=== PATIENT | male | born 1985 | race African-American/Black ===

== ENCOUNTER 2018-06-27 22:03 | Emergency (ER) | payer SELFPAY ==
[2018-06-27 22:09] VITALS: BP 156/96
[2018-06-27] MEDS ORDERED: diphenhydrAMINE 25 MG CAPSULE PO STA (22:15)
--- NOTE | 2018-06-27 22:19 | ED Physician Documentation ---
PD HPI SKIN - Stated complaint Stated Complaint: BITES - Chief complaint Chief Complaint: Wound - History obtained from History obtained from: Patient - History of Present Illness Timing - onset: Today Timing - details: Gradual onset, Now resolved Location: RUE, [place] Quality / character: Discolored Similar symptoms before: Has not had sx before Recently seen: Not recently seen - Additional information Additional information: Patient is a 32 year old male presenting to the emergency department for suspected bites. Upon initial evaluation in the emergency department there are no bites appreciated. Review of Systems Ten Systems: 10 systems reviewed and negative PD PAST MEDICAL HISTORY - Present Medications Home Medications: Ambulatory Orders Medication Instructions Recorded Confirmed No Known Home Medications [No 06/27/18 06/27/18 Known Home Medications] - Allergies Allergies/Adverse Reactions: Allergies Allergy/AdvReac Type Severity Reaction Status Date / Time No Known Drug Allergies Allergy Verified 06/27/18 22:09 PD ED PE NORMAL - Vitals Vital signs reviewed: Yes - General General: No acute distress - HEENT HEENT: Atraumatic - Cardiac Cardiac: RRR - Respiratory Respiratory: No respiratory distress - Derm Derm: Normal color, Warm and dry, No rash - Extremities Extremities: No deformity - Neuro Neuro: Alert and oriented X 3 Eye Opening: Spontaneous PD ED PE EXPANDED - Psych Psych: Tactile hallucinations Results - Vitals Vitals: Vital Signs - 24 hr 06/27/18 22:07 Temperature 36.9 C Heart Rate 75 Respiratory 16 Rate Blood Pressure 156/96 H O2 Saturation 100 Oxygen O2 Source Room air PD MEDICAL DECISION MAKING - ED course Complexity details: reviewed old records, considered differential, d/w patient ED course: patient was seen and examined at bedside. no rash was appreciated. Patient was treated with benadryl. Patient continued to insist that there was a rash on his skin. Patient kept viewing his arms. there was no insect appreciated. Patient was asked about drug use but would not comment. patient required no further inpatient work up and was stable for discharge with outpatient follow up. - Sepsis Event Vital Signs: Vital Signs - 24 hr 06/27/18 22:07 Temperature 36.9 C Heart Rate 75 Respiratory 16 Rate Blood Pressure 156/96 H O2 Saturation 100 Oxygen O2 Source Room air Departure - Departure Disposition: 01 Home, Self Care Clinical Impression: Insect bite Condition: Good Instructions: ED Bite Insect Follow-Up: primary,care provider [Other] Comments: There are no bites appreciated at this time. If you do develop itching you can apply ice to the area or take benadryl. You should follow up with your doctor if your symptoms persist. You may return to the emergency department at any time for new, worsening or uncontrollable symptoms. Discharge Date/Time: 06/27/18 23:03
== END 2018-06-27 23:03 | disposition home or self-care (01) ==
LOC: ED 22:03
DX: T14.8XXA Other injury of unspecified body region, initial encounter (principal)
CPT/HCPCS: 99282; 99283; A9270

== ENCOUNTER 2018-06-28 15:10 | Emergency (ER) | payer SELFPAY ==
[2018-06-28 15:21] VITALS: BP 138/94
--- NOTE | 2018-06-28 15:49 | ED Physician Documentation ---
PD HPI SKIN - Stated complaint Stated Complaint: RASH - Chief complaint Chief Complaint: General - History obtained from History obtained from: Patient - History of Present Illness Timing - onset: How many days ago (3-4) Timing - duration: Days (3-4) Timing - details: Gradual onset, Waxing and waning Location: Bodywide (initially on legs and arms.) Quality / character: Itchy. No: Discolored, Vesicular, Swelling Associated symptoms: No: Fever, Myalgias Contributing factors: Insect bite /sting (he believes it is some bug bites.). No: Exposed to medication, Exposed to food Similar symptoms before: Has not had sx before Recently seen: Emergency Dept (couple days ago) Review of Systems Constitutional: denies: Fever, Chills Nose: denies: Rhinorrhea / runny nose, Congestion Throat: denies: Sore throat Respiratory: denies: Cough GI: denies: Nausea, Vomiting, Diarrhea Skin: denies: Rash, Lesions PD PAST MEDICAL HISTORY - Past Medical History Past Medical History: No Cardiovascular: None Respiratory: None Neuro: None Endocrine/Autoimmune: None : None - Past Surgical History Past Surgical History: No - Present Medications Home Medications: Ambulatory Orders Medication Instructions Recorded Confirmed Cetirizine [ZyrTEC] 10 mg PO DAILY #20 tablet 06/28/18 Dexamethasone [Decadron] 4 mg PO DAILY #5 tablet 06/28/18 Permethrin 5% Cream 60 applic TOP ONCE #1 tube 06/28/18 diphenhydrAMINE [Benadryl] 25 mg PO Q4-6H PRN #30 capsule 06/28/18 - Allergies Allergies/Adverse Reactions: Allergies Allergy/AdvReac Type Severity Reaction Status Date / Time No Known Drug Allergies Allergy Verified 06/28/18 15:21 - Social History Does the pt smoke?: Yes Smoking Status: Current every day smoker Does the pt drink ETOH?: Yes Does the pt have substance abuse?: No - Immunizations Immunizations are current?: No - POLST Patient has POLST: No PD ED PE NORMAL - Vitals Vital signs reviewed: Yes - General General: Alert and oriented X 3, No acute distress, Well developed/nourished - HEENT HEENT: Pharynx benign - Neck Neck: Supple, no meningeal sign, No adenopathy - Cardiac Cardiac: RRR, No murmur - Respiratory Respiratory: Clear bilaterally - Abdomen Abdomen: Soft, Non tender, Non distended - Derm Derm: Normal color, Warm and dry, No rash - Extremities Extremities: No tenderness to palpate, Normal ROM s pain, No edema - Neuro Neuro: Alert and oriented X 3, No motor deficit, Normal speech Results - Vitals Vitals: Oxygen O2 Source Room air PD MEDICAL DECISION MAKING - ED course Complexity details: considered differential (I can't see a rash but he is itchy. He is sure they are bug bites. He otherwise had normal train of thought, no pressured speech (does not sound like delusional feeling of bugs).), d/w patient - Sepsis Event Vital Signs: Oxygen O2 Source Room air Departure - Departure Disposition: 01 Home, Self Care Clinical Impression: Dermatitis, Environmental allergies Condition: Stable Record reviewed to determine appropriate education?: Yes Prescriptions: Cetirizine [ZyrTEC] 10 mg PO DAILY #20 tablet Dexamethasone [Decadron] 4 mg PO DAILY #5 tablet diphenhydrAMINE [Benadryl] 25 mg PO Q4-6H PRN #30 capsule PRN Reason: Itching Permethrin 5% Cream 60 applic TOP ONCE #1 tube Comments: We can treat with permethrin which would take care of skin parasite such as scabies. It may be more likely to be environmental allergies causing some congestion and the skin rash and itchiness. We treat that with Decadron steroid daily for 5 more days as well as cetirizine antihistamine for the next few weeks taken daily. Add Benadryl every 6-8 hours if needed for itchiness particularly at night. Recheck if not better over the next several days. Forms: Activity restrictions Discharge Date/Time: 06/28/18 16:55
[2018-06-28] MEDS ORDERED: DEXAMETHASONE 10 MG/ML VIAL PO STA (16:06)
[2018-06-28] MEDS ORDERED: CETIRIZINE 10 MG TABLET PO STA (16:06)
== END 2018-06-28 16:55 | disposition home or self-care (01) ==
LOC: ED 15:10
DX: L30.9 Dermatitis, unspecified (principal); T78.40XA Allergy, unspecified, initial encounter; F17.200 Nicotine dependence, unspecified, uncomplicated
CPT/HCPCS: 99283; A9270